=== PATIENT | female | born 1940 | race Caucasian/White ===

== ENCOUNTER → 2016-09-11 | Outpatient (CLI) | payer OTHER ==
[~2016-09-11] MED LIST: ASPIRIN EC81 M1 PO; CALTRATE 600+D PO; METOPROLOL TAR25 MG PO; OMEPRAZOLE40 MG PO; PRAVASTATIN SOD40 MG PO
--- NOTE | ~2016-09-11 | MY11 ---
[facility] A Service of [facility] RADIOLOGY TEXT RESULTS PATIENT: DAV WEST LOCATION: [facility] : 38 UNIT #: [id number] AGE: [address]: Jacob Hathaway MD SEX: F ORDER DR: [id number] [facility] [address] [place], [place] [address] [id number] O MR#: [id number] Acc #: [id number] NAME: DAV WEST : 1940 SEX: F STUDY DATE/TIME: 09/11/2016 11:22 UNIT: [facility] ROOM: STUDY DESCRIPTION: MY Mammogram Screening Dig Justin Attending Physician: Jacob Hathaway M.D. Referring Physician: Jacob Hathaway M.D. Ordering Physician: Jacob Hathaway M.D. Primary Care Physician: Jacob Hathaway M.D. MEDICAL IMAGING REPORT This report is preliminary unless electronic signature is present EXAM Digital screening mammogram, 09/11/16, [facility]. HISTORY 75-year-old woman, no risk elevation. Annual screen. COMPARISON Mammograms date to 11/10/05 with most recent 04/05/15. TECHNIQUE Digital imaging of each breast was completed utilizing screening protocol. Review includes FDA-approved CAD device. FINDINGS Breast parenchyma is partially fatty replaced. Scattered parenchymal opacities are again noted upper/outer quadrants of each breast with stable mild dominance in the left breast anterior third. There is no interval occurring breast mass. There are no suspicious microcalcifications and no architectural deformity. IMPRESSION Negative mammogram. Annual screening recommended. Patients over the age of 40 are entered into a reminder system with target due date for the next mammogram. A result letter will also be sent to the patient. BIRADS: 1 Negative. Dictated by... Micheal Miranda M.D. [facility] A Service [facility] RADIOLOGY TEXT RESULTS PATIENT: DAV WEST LOCATION: [facility] : 38 UNIT #: [id number] AGE: [address]: Jacob Hathaway MD SEX: F ORDER DR: THIS IS AN ELECTRONICALLY VERIFIED REPORT Micheal Miranda M.D. at 09/12/2016 8:05 AM ROMEO/thania TD: 09/11/2016 18:02 JOB #: [id number] MEDICAL IMAGING REPORT Page 1 of 1 COPY
== END | disposition home or self-care (01) ==
LOC: CWCC 11:02
DX: Z12.31 Encounter for screening mammogram for malignant neoplasm of breast (principal)
CPT/HCPCS: G0202